=== PATIENT | female | born 1975 | race Two or more races ===

== ENCOUNTER 2023-06-13 20:11 | Emergency (ER) | payer MEDICAID, OTHER ==
[~2023-06-13] VITALS: Ht 170.2 cm; Wt 75.0 kg
[2023-06-13] MEDS: methylPREDNISolone SOD SUCC 125 MG/2 ML VL IM ONE (22:27)
[2023-06-13] MEDS: SODIUM CHLORIDE 0.9% 1,000 ML IV ONE ×2 (22:28→23:37)
[2023-06-13] MEDS ORDERED: PRED20TA2 PO (23:32)
[2023-06-13] MEDS ORDERED: NAP500T PO (23:32)
[2023-06-13 23:33] VITALS: BP 143/96; PULSE 94; RESP 24; TEMP 98; O2SAT 98
== END 2023-06-13 23:51 | disposition home or self-care (01) ==
LOC: EDBD 20:11 → ER 20:11
DX: M54.42 Lumbago with sciatica, left side (principal); F10.10 Alcohol abuse, uncomplicated; G89.29 Other chronic pain; I10 Essential (primary) hypertension; Z79.899 Other long term (current) drug therapy; Y90.8 Blood alcohol level of 240 mg/100 ml or more
CPT/HCPCS: 36415; 80320; 81002; 96360; 96372; 99283; J2930; J7030; 96361